=== PATIENT | male | born 1960 | race Caucasian/White ===

== ENCOUNTER 2020-07-31 09:32 | Emergency (ER) | payer BC, SELFPAY ==
--- NOTE | 2020-07-31 10:14 | ED.WOUNDLAC ---
HPI - Wound/Laceration General Chief Complaint: Wound/Laceration Stated Complaint: Wound check Time Seen by Provider: 07/31/20 10:14 Source: patient Mode of arrival: ambulatory Limitations: no limitations History of Present Illness HPI narrative: 60 y/o male with history of HLD presenting with bleeding left ring finger tip avulsion that occurrred 3 days ago. He was seen at an Urgent Care center where he had an X-ray done showing that the bone was not involved. A dressing was placed and he was instructed to return there today for a would check. On arrival there he states it started bleeding and was unable to stop. He states he has had some increased pain and throbbing. He is up to date on tetanus and was not prescribed antibiotics. He has full ROM and sensation of his finger. Denies purulent drainage or fevers. Onset (ago): day(s) (3) Location: other Extremity Location: left: hand (volar aspect of left ring finger ) Body four view annotation: 1. 2cm deep avulsion of tip without fingernail involvement Place: home Patient tetanus UTD: Yes Context: accidental Associated symptoms: pain Treatments prior to arrival: bandage Related Data Previous Rx's Medication Instructions Recorded cephalexin [Keflex] 500 mg PO QID 7 Days #28 cap 07/31/20 Allergies Allergy/AdvReac Type Severity Reaction Status Date / Time No Known Allergies Allergy Verified 07/31/20 10:18 Review of Systems Review of Systems: Constitutional: No Fever, No Chills Cardiovascular: No Chest Pain, No SOB Respiratory: No Cough, No Sputum Gastrointestinal: No Nausea, No Vomitin Musculoskeletal: + joint pain, No Myalgias Skin: No Skin Lesions, No rash Neuro: + Weakness, No Numbness, No Dizziness, No Headache Psych: No Anxiety/Panic, No Depression Heme/Lymph: No Bruising, No Lymphadenopathy Endocrine: No Polyuria, No Polydipsia PMFSH Past Medical History Attestation statement: The following information was validated with the patient. Medical History (Updated 07/31/20 @ 10:21 by Smitha Mark) Anxiety Panic disorder Surgical History (Updated 07/31/20 @ 10:21 by Smitha Mark) H/O hernia repair Social History Social History Advance Directives: No Advance Directives Information Provided: No Physical Exam Vital Signs: Vital Signs: Vital Signs Temp Pulse Resp BP Pulse Ox 07/31/20 10:18 98.1 F 58 16 123/80 99 Body Mass Index 27.6 Appearance: Alert. Oriented X3. No acute distress. HEENT: normal inspection CVS: Normal heart rate and rhythm. Pulses normal. Respiratory: No respiratory distress. Skin: Skin warm and dry. Normal skin color. Normal skin turgor. No rashes. Extremities: left ring finger with 2cm avulsion to volar aspect, does not involve nail. Small area of blackened tissue. Actively bleeding. Neuro: Oriented X 3. No motor deficit. No sensory deficit. Course Course Course Narrative: no bone or tendon involvement. NV intact. Dressing removed with saline and area cleansed with saline. new gauze and pressure has been applied. patient is not on aspirin or anticoaulgation. will reassess Reevaluation(s) Reevaluation #1: bleeidng stopped with 10 minutes of direct pressure. Xeroform and clean sterile dressing was applied. He was instructed to f/u with Wound Center in 3 days. patient agrees with plan. Critical Care Time Critical Care Time Critical Care Time: No Discharge Plan Discharge Clinical Impression: Avulsion of skin Patient Disposition: Home, Self-Care Instructions: Skin Avulsion (ED) Additional Instructions: Keep the yellow Xeroform dressing on for 3-5 days. Follow up with the [facility] in 3 days for re-assessment. Do not get wound wet. Keep hand elevated to help with pain and throbbing. If you develop numbness, tingling, loss of function of your finger or hand call 911 or come back to the ER for further evaluation. Prescriptions: New cephalexin [Keflex] 500 mg capsule 500 mg PO QID 7 Days Qty: 28 RF: 0 Referrals: Wound Care [facility] [Outside] - 2 days
[2020-07-31 10:18] VITALS: BP 123/80; PULSE 58; RESP 16; TEMP 36.7; O2SAT 99; BMI 27.6
== END 2020-07-31 11:04 | disposition home or self-care (01) ==
PROVIDERS: Emergency Provider Emergency Medicine; PCP Internal Medicine
DX: S66.395A Other injury of extensor muscle, fascia and tendon of left ring finger at wrist and hand level, initial encounter (principal); S61.305A Unspecified open wound of left ring finger with damage to nail, initial encounter; M79.645 Pain in left finger(s); Y28.9XXA Contact with unspecified sharp object, undetermined intent, initial encounter; Y93.9 Activity, unspecified; Y92.9 Unspecified place or not applicable; Y99.9 Unspecified external cause status
CPT/HCPCS: 99283

== ENCOUNTER 2020-08-02 10:18 | Outpatient (RCR) | payer BC, SELFPAY | END 2020-09-18 07:43 | disposition home or self-care (01) | LOC: HO.WCC 10:18 | PROVIDERS: PCP Internal Medicine; Visit Provider Surgery | DX: S61.215A Laceration without foreign body of left ring finger without damage to nail, initial encounter (principal) | CPT/HCPCS: 11042; 99203; 99212 ==

== ENCOUNTER 2022-11-01 12:51 | Emergency (ER) | payer BC, SELFPAY ==
--- NOTE | ~2022-11-01 | CT_ITS ---
EXAMINATION: CT ABDOMEN AND PELVIS WITH CONTRAST CLINICAL INFORMATION: Epigastric abdominal pain. COMPARISON: Abdominal ultrasound performed today. TECHNIQUE: Multidetector volumetric images were obtained from the superior aspect of the liver through the pubic symphysis following administration 85 mL of Omnipaque 350 intravenous contrast. Sagittal and coronal reformatted images were obtained on the technologist's workstation. Oral contrast: No This CT examination was performed using dose optimization techniques as appropriate, variously including the following: *Automated exposure control *Adjustment of mA and/or kV according to patient size (this includes techniques or standardized protocols for targeted exams where dose is matched to indication/reason for exam; i.e. extremities or head) *Use of iterative reconstruction technique DLP: 745 mGy-cm FINDINGS: LUNG BASES: The visualized lung bases are unremarkable. LIVER, GALLBLADDER, AND BILIARY TREE: Unremarkable. PANCREAS: Unremarkable. SPLEEN: Unremarkable. ADRENAL GLANDS: Unremarkable. KIDNEYS AND URETERS: The kidneys are normal in size, shape, and attenuation. No hydronephrosis, hydroureter, or calculi seen. No perinephric stranding. BLADDER: Unremarkable. GASTROINTESTINAL TRACT: The stomach is unremarkable. Mildly prominent fluid-filled jejunum is seen. A transition point is seen in the left midabdomen (image 32, series 7; image 52, series 3. Decompressed small bowel loops are seen distal to this in the mid ileum. The appendix is unremarkable. The colon shows a loop of the descending/sigmoid junction involved with a moderate left inguinal hernia. Small to moderate fat-containing right inguinal hernia. ABDOMINAL WALL: Small fat-containing umbilical hernia. LYMPH NODES: No lymphadenopathy. VASCULAR: Unremarkable. PELVIC VISCERA: Mild prostatomegaly. OSSEOUS STRUCTURES: L4-L5 and L5-S1 moderate degenerative disc disease and bilateral neural foraminal narrowing. CT/CT abdomen pelvis w IV con IMPRESSION: 1. Mildly prominent fluid-filled jejunum with transition point in the left midabdomen. Decompressed small bowel loops are seen distal to this in the mid ileum. This could be secondary to normal contraction however partial obstruction at this level cannot be excluded. Continued monitoring of the patient's symptoms is recommended. Short-term supine and upright radiographic follow-up is recommended as clinically indicated. 2. Moderate left inguinal hernia containing a loop of the descending/sigmoid junction without evidence for obstruction. Small to moderate fat-containing right inguinal hernia. 3. Small fat-containing umbilical hernia. 4. Mild prostatomegaly. 5. L4-L5 and L5-S1 moderate degenerative disc disease and bilateral neural foraminal narrowing.
--- NOTE | ~2022-11-01 | US_ITS ---
EXAMINATION: US ABDOMEN LIMITED CLINICAL INFORMATION: Epigastric abdominal pain. COMPARISON: CT scan of the abdomen and pelvis performed today. TECHNIQUE: Real-time imaging of the right upper quadrant abdominal viscera. FINDINGS: PANCREAS: Utilizing portions unremarkable. LIVER: Unremarkable. GALLBLADDER: Unremarkable. COMMON BILE DUCT: Normal in caliber measuring 0.4 cm in diameter. RIGHT KIDNEY: 9.5 cm. Unremarkable. FREE FLUID: None. US/US abdomen limited IMPRESSION: Unremarkable abdominal ultrasound.
[2022-11-01 12:58] VITALS: BP 141/72; BP 172/84; PULSE 51; PULSE 54; RESP 16; TEMP 36.7; O2SAT 97; O2SAT 98; BMI 28.8
--- NOTE | 2022-11-01 13:11 | ED_ITS ---
HPI - Abdominal Pain General Chief Complaint: Abdominal Pain Stated Complaint: Abd pain per EMS Time Seen by Provider: 11/01/22 13:01 Source: patient Mode of arrival: ambulatory Limitations: no limitations History of Present Illness HPI narrative: 62-year-old male presents to emergency room with 1 week of worsening midline abdominal pain. Patient states that he has never had any surgery had this pain in the past but has greater than worsening with the past week he denies nausea vomiting or diarrhea he states he has had an appetite he denies any associated of foods he denies is worse when lying down but states the pain is to his mid abdomen, radiates to his left shoulder patient denies fevers chills cough MD elicited complaint: abdominal pain Related Data Home Medications Medication Instructions Recorded Confirmed atenolol 25 mg tablet 1 tab PO DAILY 11/01/22 11/01/22 atorvastatin 40 mg tablet 1 tab PO DAILY 11/01/22 11/01/22 escitalopram oxalate 20 mg tablet 1 tab PO DAILY 11/01/22 11/01/22 famotidine 40 mg tablet 1 tab PO BID 11/01/22 11/01/22 Allergies Allergy/AdvReac Type Severity Reaction Status Date / Time No Known Allergies Allergy Verified 07/31/20 10:18 Review of Systems Review of Systems Review of systems: General: Patient denies any fever chills recent illness or falls Musculoskeletal: Denies back pain or body aches or other injuries HEENT: denies headache, runny nose, ear pain Respiratory: denies shortness of breath, cough Cardiovascular: no chest pain or palpitations : denies dysuria, frequency Abdomen: no nausea vomiting mid abdominal pain Extremities: no swelling, no pain Skin: no diaphoresis Yes all other systems are reviewed and are negative [facility] Past Medical History Medical History (Updated 11/01/22 @ 15:50 by Quinn Vera DO) Anxiety Panic disorder Surgical History (Updated 07/31/20 @ 10:21 by Smitha Mark) H/O hernia repair Social History Social History Smoked in Last 30 Days: No Use of substances other than those prescribed or required for medical reasons: No Advance Directives: No Advance Directives Information Provided: Yes Physical Exam ED Vital Signs: Vital Signs - 24 hr 11/01/22 12:58 11/01/22 13:56 11/01/22 14:37 Temperature 98.1 F 99.3 F Pulse Rate 51 56 Respiratory Rate 16 16 20 Blood Pressure 141/72 H 155/74 H Pulse Oximetry 97 97 Oxygen Delivery Method Room Air Room Air BMI result Body Mass Index 28.8 General: Well-appearing well-nourished in no signs of distress HEENT: Normocephalic atraumatic Neck: No signs of JVD, no masses no tenderness or lymphadenopathy Cardiovascular: Regular rate and rhythm Respiratory: Clear to auscultation bilaterally Abdomen: Soft negative Browning no pain at Macburney's point is tender to midline abdomen with guarding no masses Extremities: Normal pedal pulses no signs of edema Skin: Dry warm no rashes Back: No tenderness full ROM Medical Decision Making Medical Decision Making [facility] Narrative: 62-year-old male with epigastric pain that goes to his mid abdomen he has no history of any surgeries to his abdomen but is very tender on evaluation there is no real tenderness to the right upper quadrant but still concerned this could be his gallbladder also get a CT scan and ultrasound as well as check all labs. The patient morphine fluids and Pepcid. Concern for partial obsctuction and hernia has hernia surgery scheduled for December. He has had hernia repair x2 at [facility] in the past. I spoke with surgery Dr. Kent who reviewed the CT's and felt it was not a bowel obstuction. Patient is eating and drinking okay. I spoke with the patient about admission vs going home. He would rather go home. I will set up for discharge. Differential Diagnosis Differential Diagnoses: The differential diagnosis associated with the presentation includes Acute cholecystitis diverticulitis appendicitis gastric issue volvulus bowel obstruction or even perforation versus gastritis. Admission/Observation Consideration of admission/observation: Escalation of care including admission/observation considered Consult Healthcare Provider Management of the patient was discussed with: Internet Marketing Consultant I discussed the case with Dr. Kent about his CT read of acute partial obstruction. He felt if the patient is not acute he can follow up outpatient. Patinet tolerated clears belly pain has resolved. Lab Data [facility] Lab Attestation statement: I reviewed the patient's lab results. 11/01/22 13:26 11/01/22 13:26 Labs: Lab Results 11/01/22 11/01/22 11/01/22 Range/Units 13:23 13:26 13:26 WBC 10.0 (4.8-10.8) X10*3/uL RBC 5.07 (4.60-5.80) X10*6/uL Hgb 15.0 (14.0-18.0) g/dl Hct 44.3 (42.0-52.0) % MCV 87.4 (80.0-98.0) fL MCH 29.6 (27.0-33.0) pg MCHC 33.9 (31.0-36.0) g/dl RDW 12.5 (11.0-16.0) % Plt Count 347 (160-400) X10*3/uL MPV 8.9 L (9.4-12.4) fL Immature Gran % (Auto) 0.3 (0.0-0.4) % Neut % (Auto) 72.8 (45-73) % Lymph % (Auto) 18.0 L (20-40) % [place] % (Auto) 8.5 (2-11) % Eos % (Auto) 0.1 (0-4) % Baso % (Auto) 0.3 (0-2) % Lymph # (Auto) 1.8 (1.2-4.9) X10*3/uL [place] # (Auto) 0.9 (0.1-1.2) X10*3/uL Eos # (Auto) 0.0 (0.0-0.4) X10*3/uL Baso # (Auto) 0.0 (0.0-0.2) X10*3/uL Abs Immat Gran (auto) 0.03 (0.00-0.03) X10*3/uL Absolute Neuts (auto) 7.3 (2.0-8.3) x10*3/uL Absolute Nucleated RBC 0.000 (0.0-0.012) X10*3/uL Nucleated RBC % (auto) 0.0 (0.0-0.2) /100WBC Sodium 134 L (135-145) mmol/L Potassium 4.3 (3.3-5.1) mmol/L Chloride 99 (96-108) mmol/L Carbon Dioxide 25 (22-29) mmol/L Anion Gap 14 (12-20) BUN 14 (9-16) mg/dL Creatinine 0.94 (0.5-1.4) mg/dL Estim Creat Clear Calc 102.5 Estimated GFR > 60 Random Glucose 88 (60-115) mg/dL Calcium 9.5 (8.4-10.2) mg/dL Total Bilirubin 0.8 (0.0-1.0) mg/dL Direct Bilirubin 0.2 (0.0-0.5) mg/dL AST 26 (5-37) U/L ALT 25 (0-40) U/L Alkaline Phosphatase 63 (39-117) U/L Total Protein 7.3 (6.5-8.0) g/dL Albumin 4.2 (3.5-5.0) g/dL Lipase 37 (8-78) U/L Urine Color Urine Appearance Urine pH (5.0-9.0) Ur Specific [place] (1.005-1.025) Urine Protein (Neg-Trace) mg/dL Urine Glucose (UA) (Negative) mg/dL Urine Ketones (Negative) mg/dL Urine Blood (Negative) Urine Nitrite (Negative) Ur Leukocyte Esterase (Negative) Urine RBC (0-2) /HPF Urine WBC (0-5) /HPF Ur Squamous Epith Cells (0-2) /HPF Urine Bacteria (None Seen) Hyaline Casts (0-2) /LPF COVID-19 (KIMBERLY) Negative (Negative) COVID-19 Clin Com See Note 11/01/22 Range/Units 13:27 WBC (4.8-10.8) X10*3/uL RBC (4.60-5.80) X10*6/uL Hgb (14.0-18.0) g/dl Hct (42.0-52.0) % MCV (80.0-98.0) fL MCH (27.0-33.0) pg MCHC (31.0-36.0) g/dl RDW (11.0-16.0) % Plt Count (160-400) X10*3/uL MPV (9.4-12.4) fL Immature Gran % (Auto) (0.0-0.4) % Neut % (Auto) (45-73) % Lymph % (Auto) (20-40) % [place] % (Auto) (2-11) % Eos % (Auto) (0-4) % Baso % (Auto) (0-2) % Lymph # (Auto) (1.2-4.9) X10*3/uL [place] # (Auto) (0.1-1.2) X10*3/uL Eos # (Auto) (0.0-0.4) X10*3/uL Baso # (Auto) (0.0-0.2) X10*3/uL Abs Immat Gran (auto) (0.00-0.03) X10*3/uL Absolute Neuts (auto) (2.0-8.3) x10*3/uL Absolute Nucleated RBC (0.0-0.012) X10*3/uL Nucleated RBC % (auto) (0.0-0.2) /100WBC Sodium (135-145) mmol/L Potassium (3.3-5.1) mmol/L Chloride (96-108) mmol/L Carbon Dioxide (22-29) mmol/L Anion Gap (12-20) BUN (9-16) mg/dL Creatinine (0.5-1.4) mg/dL Estim Creat Clear Calc Estimated GFR Random Glucose (60-115) mg/dL Calcium (8.4-10.2) mg/dL Total Bilirubin (0.0-1.0) mg/dL Direct Bilirubin (0.0-0.5) mg/dL AST (5-37) U/L ALT (0-40) U/L Alkaline Phosphatase (39-117) U/L Total Protein (6.5-8.0) g/dL Albumin (3.5-5.0) g/dL Lipase (8-78) U/L Urine Color Yellow Urine Appearance Clear Urine pH 6.0 (5.0-9.0) Ur Specific [place] 1.020 (1.005-1.025) Urine Protein Negative (Neg-Trace) mg/dL Urine Glucose (UA) Negative (Negative) mg/dL Urine Ketones Negative (Negative) mg/dL Urine Blood Trace H (Negative) Urine Nitrite Negative (Negative) Ur Leukocyte Esterase Negative (Negative) Urine RBC 3-5 H (0-2) /HPF Urine WBC 0-5 (0-5) /HPF Ur Squamous Epith Cells 0-2 (0-2) /HPF Urine Bacteria None Seen (None Seen) Hyaline Casts 0-2 (0-2) /LPF COVID-19 (KIMBERLY) (Negative) COVID-19 Clin Com Medications Administered Discontinued Medications Generic Name Dose Route Start Last Admin Trade Name Ihsan PRN Reason Stop Dose Admin Famotidine 20 mg 11/01/22 13:08 11/01/22 13:56 Famotidine/Pf 20 Mg/2 Ml Vial IVPUSH 11/01/22 13:09 20 mg ONCE ONE Administration Sodium Chloride 1,000 mls @ 999 mls/hr 11/01/22 13:15 11/01/22 15:12 Ns IV 11/01/22 14:15 Infused .Q1H1M SANGEETA Infusion Iohexol 85 ml 11/01/22 14:16 11/01/22 14:16 Iohexol 350 Mg/Ml 100 Ml Infus..Btl IV 11/01/22 14:17 85 ml ONCE ONE Administration Morphine Sulfate 4 mg 11/01/22 13:08 11/01/22 13:56 Morphine Sulfate 4 Mg/Ml Cartridge IVPUSH 11/01/22 13:09 4 mg ONCE ONE Administration Protocol Ondansetron HCl 4 mg 11/01/22 13:08 11/01/22 13:56 Ondansetron Hcl 4 Mg/2 Ml Vial IVPUSH 11/01/22 13:09 4 mg ONCE ONE Administration Discharge Plan Discharge Clinical Impression: Abdominal pain Patient Disposition: Home, Self-Care Instructions: Abdominal Pain (ED) Additional Instructions: Please call to follow up with your doctor. Prescriptions: No Action atorvastatin 40 mg tablet 1 tab PO DAILY famotidine 40 mg tablet 1 tab PO BID atenolol 25 mg tablet 1 tab PO DAILY escitalopram oxalate 20 mg tablet 1 tab PO DAILY
[2022-11-01 13:32] LABS: MANUAL DIFF FLAG NO
[2022-11-01 13:36] LABS: Basophils Percent Auto 0.3 % (0-2); Eosinophils Percent Auto 0.1 % (0-4); Hematocrit 44.3 % (42.0-52.0); Imm Gran Abs Auto 0.03 X10*3/uL (0.00-0.03); Imm Gran Pct Auto 0.3 % (0.0-0.4); Lymphocytes Absolute Auto 1.8 X10*3/uL (1.2-4.9); Mean Corpuscular HGB Conc 33.9 g/dl (31.0-36.0); Mean Corpuscular Hemoglobin 29.6 pg (27.0-33.0); Mean Corpuscular Volume 87.4 fL (80.0-98.0); Mean Platelet Volume 8.9 fL (9.4-12.4); Monocytes Absolute Auto 0.9 X10*3/uL (0.1-1.2); Monocytes Percent Auto 8.5 % (2-11); Neutrophils Absolute Auto 7.3 x10*3/uL (2.0-8.3); Neutrophils Percent Auto 72.8 % (45-73); Platelet Count 347 X10*3/uL (160-400); Red Blood Count 5.07 X10*6/uL (4.60-5.80); Red Cell Distribution Width 12.5 % (11.0-16.0)
[2022-11-01 13:37] LABS: Appearance Urine Clear; Color Urine Yellow; Glucose Urine UA Negative (Negative); Leukocyte Esterase Urine Negative (Negative); Nitrite Urine Negative (Negative); UMIC TRIGGER UACC YES; Urine Blood Trace (Negative); Urine Ketones Negative (Negative); Urine Protein Negative (Neg-Trace)
[2022-11-01 13:42] LABS: Bacteria Urine None Seen (None Seen); Hyaline Casts Urine 0-2 /LPF (0-2); Squamous Epithelial Cell Urine 0-2 /HPF (0-2); WBC Urine 0-5 /HPF (0-5)
[2022-11-01 13:51] LABS: COVID-19 Test Negative (Negative); IDNOW Serial# 16C4AD1C
[2022-11-01 13:52] LABS: Alanine Aminotransferase 25 U/L (0-40); Albumin Level 4.2 g/dL (3.5-5.0); Alkaline Phosphatase 63 U/L (39-117); Anion Gap 14 (12-20); Aspartate Amino Transferase 26 U/L (5-37); Bilirubin Direct 0.2 mg/dL (0.0-0.5); Bilirubin Total 0.8 mg/dL (0.0-1.0); Blood Urea Nitrogen 14 mg/dL (9-16); Calcium 9.5 mg/dL (8.4-10.2); Carbon Dioxide 25 mmol/L (22-29); Chloride 99 mmol/L (96-108); Creatinine Clr Calc Pharmacy 102.5; Estimated Glomerular Filt Rate > 60; Glucose Random 88 mg/dL (60-115); Lipase 37 U/L (8-78); Potassium 4.3 mmol/L (3.3-5.1); Sodium 134 mmol/L (135-145); Total Protein 7.3 g/dL (6.5-8.0)
[2022-11-01 13:56] VITALS: RESP 16
[2022-11-01] MEDS: ondansetron HCL 4 MG/2 ML VIAL IVPUSH (13:56)
[2022-11-01] MEDS: Morphine Sulfate 4 MG/ML CARTRIDGE IVPUSH (13:56)
[2022-11-01] MEDS: Famotidine/PF 20 MG/2 ML VIAL IVPUSH (13:56)
[2022-11-01] MEDS: 0.9 % Sodium Chloride 1,000 ML 999 ML IV (14:00)
[2022-11-01] MEDS: iohexoL 350 MG/ML 100 ML INFUS..BTL 85 ML IV (14:16)
[2022-11-01 14:37] VITALS: BP 155/74; PULSE 56; RESP 20; TEMP 37.4; O2SAT 97
== END 2022-11-01 16:16 | disposition home or self-care (01) ==
PROVIDERS: Emergency Provider Student in an Organized Health Care Education/Training Program; PCP Internal Medicine
DX: R10.13 Epigastric pain (principal); Z20.822 Contact with and (suspected) exposure to COVID-19; Z20.828 Contact with and (suspected) exposure to other viral communicable diseases; Z79.899 Other long term (current) drug therapy
CPT/HCPCS: 74177; 76705; 80048; 80076; 81001; 83690; 85025; 87635; 99284; J2270; J2405; Q9967

== ENCOUNTER 2022-11-02 14:49 | Emergency (ER) | payer BC, SELFPAY ==
--- NOTE | ~2022-11-02 | CT_ITS ---
EXAMINATION: CT CHEST, ABDOMEN AND PELVIS WITHOUT CONTRAST CLINICAL INFORMATION: Upper abdominal pain. COMPARISON: None. TECHNIQUE: Multidetector volumetric CT imaging of the chest, abdomen and pelvis was obtained without oral or intravenous contrast. Coronal and sagittal reformatted images are performed at CT scanner [This CT examination was performed using dose optimization techniques as appropriate, variously including the following: *Automated exposure control *Adjustment of mA and/or kV according to patient size (this includes techniques or standardized protocols for targeted exams where dose is matched to indication/reason for exam; i.e. extremities or head) *Use of iterative reconstruction technique] DLP: 1257 mGy-cm. FINDINGS: CT CHEST: Lungs: The lungs are clear with no evidence of inflammation or nodules. Mediastinum: The mediastinum is normal. Pleura: There is no pleural effusion. No pleural mass or thickening. Axilla: No lymphadenopathy. CT ABDOMEN AND PELVIS: Liver, Gallbladder and Biliary Tree: The liver is normal in size, shape, and attenuation. No focal hepatic lesion or biliary ductal dilatation is present. The gallbladder is unremarkable with no evidence of radiopaque gallstones, gallbladder wall thickening, or obvious pericholecystic inflammatory changes. Pancreas: No acute change of the pancreas. No mass. No pancreatic duct dilatation. Spleen: Spleen normal in size and contour. No focal lesion. Adrenal Glands: Adrenal glands are normal in size. No focal mass. Kidneys and Ureters: The kidneys are normal in size, shape, and attenuation. No hydronephrosis, hydroureter, or calculi seen. No perinephric stranding. Bladder: Unremarkable. ABDOMINAL WALL/GASTROINTESTINAL Tract: Left inguinal hernia containing nonobstructive loop of the sigmoid colon. The herniated fat pocket measures 7 cm transverse at about 11 cm of length. Small fat-containing umbilical hernia. No acute change of the bowel. No bowel obstruction. No bowel thickening or edema. Moderate volume of stool in the colon. The appendix is not visualized. No inflammation the mesentery. Small bowel loops are unremarkable. Stomach is normal. Mesentery: No focal inflammation. No free fluid. No free air. Lymph Nodes: Normal. Vascular: Small volume of scattered vascular wall calcifications of aorta and iliac arteries. Pelvic Viscera: Unremarkable. Osseous Structures: Multilevel degenerative spondylosis spine. CT/CT abdomen pelvis wo IV con IMPRESSION: CT CHEST: No acute abnormality. CT ABDOMEN PELVIS: Left inguinal hernia containing nonobstructive loop of sigmoid colon.
--- NOTE | 2022-11-02 16:19 | ECG_ITS ---
Test Reason : ABD PAIN Blood Pressure : / mmHG Vent. Rate : 047 BPM Atrial Rate : 047 BPM P-R Int : 172 ms QRS Dur : 092 ms QT Int : 440 ms P-R-T Axes : 032 014 006 degrees QTc Int : 389 ms Sinus bradycardia Otherwise normal ECG No previous ECGs available Referred By: Benji Rodriguez Electronically Signed By:ALYSE LUCERO MD
[2022-11-02 16:20] VITALS: BP 144/80; PULSE 56; RESP 18; TEMP 37.1; O2SAT 97; BMI 28.8
--- NOTE | 2022-11-02 16:22 | ED_ITS ---
HPI - General Adult General Chief complaint: Abdominal Pain <AYAKA Johnson - Last Filed: 11/02/22 20:13> Stated complaint: Abd pain- seen yesterday <AYAKA Johnson - Last Filed: 11/02/22 20:13> Time Seen by Provider: 11/02/22 19:25 <AYAKA Johnson - Last Filed: 11/02/22 20:13> Source: patient and family <Chad Johnson MD - Last Filed: 11/02/22 19:53> Mode of arrival: ambulatory <Chad Johnson MD - Last Filed: 11/02/22 19:53> Limitations: no limitations <Chad Johnson MD - Last Filed: 11/02/22 19:53> History of Present Illness HPI narrative: 62-year-old male with history of anxiety depression and hypertension presents to the emergency department with feelings of anxiety, chest tightness abdominal tightness. Patient has been on Xanax for approximately 4 years. Recently, patient has been taking extra doses of his medication condition P. He ran out of his medications approximately last Wednesday. Since then he has had intermittent chest tightness abdominal tightness, back pain. Appears to be exacerbated when his anxiety and stress levels are elevated. He denies any significant shortness of breath. Denies chest pain with exertion. Denies any focal neurologic deficit she has numbness, tingling or focal weakness. He has also noted that his blood pressures been elevated during the same period of time and he has been compliant with his blood pressure medications. Additionally, he denies any orthopnea, PND, RAMON. Patient denies suicidal or homicidal ideation. He does note that his was unaware of how he is taking his medications was low bit frustrated earlier. Patient denies any seizure activity. <Chad Johnson MD - Last Filed: 11/02/22 19:53> Related Data Home medications: Home Medications Medication Instructions Recorded Confirmed atenolol 25 mg tablet 1 tab PO DAILY 11/01/22 11/01/22 atorvastatin 40 mg tablet 1 tab PO DAILY 11/01/22 11/01/22 escitalopram oxalate 20 mg tablet 1 tab PO DAILY 11/01/22 11/01/22 famotidine 40 mg tablet 1 tab PO BID 11/01/22 11/01/22 Previous Rx's Medication Instructions Recorded clonazepam 1 mg tablet 1 mg PO BID anxiety #6 tabs 11/02/22 <AYAKA Johnson - Last Filed: 11/02/22 20:13> Allergies/adverse reactions: Allergies Allergy/AdvReac Type Severity Reaction Status Date / Time No Known Allergies Allergy Verified 07/31/20 10:18 <AYAKA Johnson - Last Filed: 11/02/22 20:13> Review of Systems Review of Systems: CONSTITUTIONAL: Denies weight loss, fever and chills. HEENT: Denies changes in vision and hearing. RESPIRATORY: Denies SOB and cough. CV: Denies palpitations + CP. GI: + abdominal pain, No nausea, vomiting and diarrhea. : Denies dysuria and urinary frequency. MSK: Denies myalgia and joint pain. SKIN: Denies rash and pruritus. NEUROLOGICAL: Denies headache and syncope.tremulousness PSYCHIATRIC: Denies recent changes in mood. + anxiety and depression. <Chad Johnson MD - Last Filed: 11/02/22 19:53> Yes all other systems are reviewed and are negative <Chad Johnson MD - Last Filed: 11/02/22 19:53> PMFSH Past Medical History Medical History: Medical History Anxiety Panic disorder <AYAKA Johnson - Last Filed: 11/02/22 20:13> Surgical History: Surgical History H/O hernia repair <AYAKA Johnson - Last Filed: 11/02/22 20:13> Social History Social History: Social History Advance Directives: No Advance Directives Information Provided: No <AYAKA Johnson - Last Filed: 11/02/22 20:13> Physical Exam ED Vital Signs: Vital Signs - 24 hr 11/02/22 16:20 Temperature 98.8 F Pulse Rate 56 Respiratory Rate 18 Blood Pressure 144/80 H Pulse Oximetry 97 Oxygen Delivery Method Room Air BMI result Body Mass Index 28.8 <AYAKA Johnson - Last Filed: 11/02/22 20:13> Vital Signs - 24 hr 11/02/22 16:20 Temperature 98.8 F Pulse Rate 56 Respiratory Rate 18 Blood Pressure 144/80 H Pulse Oximetry 97 Oxygen Delivery Method Room Air BMI result Body Mass Index 28.8 GEN: Well developed, no acute distress, alert, oriented HEENT: Normocephalic, atraumatic, normal external ears, nose appears normal, no oropharyngeal edema or exudates Eyes: Normal to appearance Neck: Supple, no lymphadenopathy Respiratory: Talks in complete sentences, no respiratory distress, clear to auscultation bilaterally Cardiovascular: Regular rate and rhythm, no murmurs rubs or gallops Abdomen: Soft, nontender, nondistended, no guarding, no rebound Back: No CVA tenderness Extremities: No clubbing cyanosis or edema Neurologic: No focal neurologic deficits, cranial nerves 2-12 intact, strength is 5/5 bilaterally, gait normal Skin: No rash <Chad Johnson MD - Last Filed: 11/02/22 19:53> Course Course Course Narrative: RME: 62 yold male returns to the ED for abdominal pain. patient states abd ominal pain with constipation, nauseaa, and no appettite for a couple of days. patient seen yesterday with diagnosis of partial bowel obstruction, but surgeon did not not think it was bowel obstruction so patient was discharged. Repeat imaging and labs ordered. EKG ordered <AYAKA Johnson - Last Filed: 11/02/22 20:13> Reevaluation(s) Reevaluation #1: It is 745. The workup is complete. Patient had a CT scan of the abdomen and chest. Did not demonstrate any acute abnormalities. His lab work did not reveal any acute abnormalities as well to describe symptoms. More likely than not he is going through withdrawal from benzodiazepines. We had extensive conversation regarding the use of alprazolam. At this point I am recommending him switch to clonazepam for a longer acting FX and reduce risk for withdrawal. I am also recommending close follow-up with his primary care provider to work on his medical management. Patient will return for any worsening or concerning sy mptoms. There is no indication for patient to be evaluated by our crisis team esters no suicidal or homicidal ideation. is present during these conversations and she agrees with this plan as well. <Chad Johnson MD - Last Filed: 11/02/22 19:53> Time: 19:47 <Chad Johnson MD - Last Filed: 11/02/22 19:53> Medical Decision Making Medical Decision Making MDM Narrative: 62-year-old male with history of anxiety, depression, hypertension presents with chest tightness, abdominal tightness, back discomfort associated with withdrawal from alprazolam which he last took last Wednesday. He has had no seizure activity. Patient is somewhat tremulous on examination but otherwise his exam is benign including no abdominal tenderness, rebound or guarding. Lungs were clear to auscultation bilaterally and heart was regular. Patient will have workup including imaging studies, laboratory analysis, EKG. <Chad Johnson MD - Last Filed: 11/02/22 19:53> Differential Diagnosis Differential Diagnoses: The differential diagnosis associated with the presentation includes (Anxiety, depression, medication withdrawal, atypical chest pain, cardiac chest pain, pneumothorax, pericarditis, aortic dysfunction.) <Chad Johnson MD - Last Filed: 11/02/22 19:53> Medication withdrawal, anxiety, atypical chest pain, abdominal pain <Chad Johnson MD - Last Filed: 11/02/22 19:53> Admission/Observation Consideration of admission/observation: Escalation of care including admission/observation considered <Chad Johnson MD - Last Filed: 11/02/22 19:53> Lab Data MDM Lab Attestation statement: I reviewed the patient's lab results. <Cahd Johnson MD - Last Filed: 11/02/22 19:53> Result Diagrams: 11/02/22 17:21 11/02/22 17:21 <AYAKA Johnson - Last Filed: 11/02/22 20:13> Labs: Lab Results 11/02/22 11/02/22 11/02/22 Range/Units 17:21 17:21 17:21 WBC 11.1 H (4.8-10.8) X10*3/uL RBC 5.15 (4.60-5.80) X10*6/uL Hgb 15.3 (14.0-18.0) g/dl Hct 45.0 (42.0-52.0) % MCV 87.4 (80.0-98.0) fL MCH 29.7 (27.0-33.0) pg MCHC 34.0 (31.0-36.0) g/dl RDW 12.3 (11.0-16.0) % Plt Count 349 (160-400) X10*3/uL MPV 9.0 L (9.4-12.4) fL Immature Gran % (Auto) 0.3 (0.0-0.4) % Neut % (Auto) 68.3 (45-73) % Lymph % (Auto) 21.3 (20-40) % [place] % (Auto) 9.4 (2-11) % Eos % (Auto) 0.3 (0-4) % Baso % (Auto) 0.4 (0-2) % Lymph # (Auto) 2.4 (1.2-4.9) X10*3/uL [place] # (Auto) 1.0 (0.1-1.2) X10*3/uL Eos # (Auto) 0.0 (0.0-0.4) X10*3/uL Baso # (Auto) 0.0 (0.0-0.2) X10*3/uL Abs Immat Gran (auto) 0.03 (0.00-0.03) X10*3/uL Absolute Neuts (auto) 7.6 (2.0-8.3) x10*3/uL Absolute Nucleated RBC 0.000 (0.0-0.012) X10*3/uL Nucleated RBC % (auto) 0.0 (0.0-0.2) /100WBC PT 11.6 (10.0-13.1) SEC INR 1.0 (0.9-1.1) APTT 29.2 (26.0-36.4) SEC Sodium 134 L (135-145) mmol/L Potassium 4.6 (3.3-5.1) mmol/L Chloride 98 (96-108) mmol/L Carbon Dioxide 29 (22-29) mmol/L Anion Gap 12 (12-20) BUN 14 (9-16) mg/dL Creatinine 1.01 (0.5-1.4) mg/dL Estim Creat Clear Calc 95.4 Estimated GFR > 60 Random Glucose 99 (60-115) mg/dL Calcium 9.4 (8.4-10.2) mg/dL Total Bilirubin 0.8 (0.0-1.0) mg/dL AST 23 (5-37) U/L ALT 24 (0-40) U/L Alkaline Phosphatase 67 (39-117) U/L Troponin I High Sens (<3.5-35.0) ng/L B-Natriuretic Peptide (<100) pg/mL Total Protein 7.4 (6.5-8.0) g/dL Albumin 4.3 (3.5-5.0) g/dL Lipase 46 (8-78) U/L Influenza Type A (PCR) (Negative) Influenza Type B (PCR) (Negative) RSV RNA Qual (PCR) (Negative) SARS-CoV-2 RNA (RT-PCR) (Negative) 11/02/22 11/02/22 11/02/22 Range/Units 17:21 17:21 17:21 WBC (4.8-10.8) X10*3/uL RBC (4.60-5.80) X10*6/uL Hgb (14.0-18.0) g/dl Hct (42.0-52.0) % MCV (80.0-98.0) fL MCH (27.0-33.0) pg MCHC (31.0-36.0) g/dl RDW (11.0-16.0) % Plt Count (160-400) X10*3/uL MPV (9.4-12.4) fL Immature Gran % (Auto) (0.0-0.4) % Neut % (Auto) (45-73) % Lymph % (Auto) (20-40) % [place] % (Auto) (2-11) % Eos % (Auto) (0-4) % Baso % (Auto) (0-2) % Lymph # (Auto) (1.2-4.9) X10*3/uL [place] # (Auto) (0.1-1.2) X10*3/uL Eos # (Auto) (0.0-0.4) X10*3/uL Baso # (Auto) (0.0-0.2) X10*3/uL Abs Immat Gran (auto) (0.00-0.03) X10*3/uL Absolute Neuts (auto) (2.0-8.3) x10*3/uL Absolute Nucleated RBC (0.0-0.012) X10*3/uL Nucleated RBC % (auto) (0.0-0.2) /100WBC PT (10.0-13.1) SEC INR (0.9-1.1) APTT (26.0-36.4) SEC Sodium (135-145) mmol/L Potassium (3.3-5.1) mmol/L Chloride (96-108) mmol/L Carbon Dioxide (22-29) mmol/L Anion Gap (12-20) BUN (9-16) mg/dL Creatinine (0.5-1.4) mg/dL Estim Creat Clear Calc Estimated GFR Random Glucose (60-115) mg/dL Calcium (8.4-10.2) mg/dL Total Bilirubin (0.0-1.0) mg/dL AST (5-37) U/L ALT (0-40) U/L Alkaline Phosphatase (39-117) U/L Troponin I High Sens < 3.5 (<3.5-35.0) ng/L B-Natriuretic Peptide 37 (<100) pg/mL Total Protein (6.5-8.0) g/dL Albumin (3.5-5.0) g/dL Lipase (8-78) U/L Influenza Type A (PCR) NEGATIVE (Negative) Influenza Type B (PCR) NEGATIVE (Negative) RSV RNA Qual (PCR) NEGATIVE (Negative) SARS-CoV-2 RNA (RT-PCR) NEGATIVE (Negative) <AYAKA Johnson - Last Filed: 11/02/22 20:13> Lab Results 11/02/22 11/02/22 11/02/22 Range/Units 17:21 17:21 17:21 WBC 11.1 H (4.8-10.8) X10*3/uL RBC 5.15 (4.60-5.80) X10*6/uL Hgb 15.3 (14.0-18.0) g/dl Hct 45.0 (42.0-52.0) % MCV 87.4 (80.0-98.0) fL MCH 29.7 (27.0-33.0) pg MCHC 34.0 (31.0-36.0) g/dl RDW 12.3 (11.0-16.0) % Plt Count 349 (160-400) X10*3/uL MPV 9.0 L (9.4-12.4) fL Immature Gran % (Auto) 0.3 (0.0-0.4) % Neut % (Auto) 68.3 (45-73) % Lymph % (Auto) 21.3 (20-40) % [place] % (Auto) 9.4 (2-11) % Eos % (Auto) 0.3 (0-4) % Baso % (Auto) 0.4 (0-2) % Lymph # (Auto) 2.4 (1.2-4.9) X10*3/uL [place] # (Auto) 1.0 (0.1-1.2) X10*3/uL Eos # (Auto) 0.0 (0.0-0.4) X10*3/uL Baso # (Auto) 0.0 (0.0-0.2) X10*3/uL Abs Immat Gran (auto) 0.03 (0.00-0.03) X10*3/uL Absolute Neuts (auto) 7.6 (2.0-8.3) x10*3/uL Absolute Nucleated RBC 0.000 (0.0-0.012) X10*3/uL Nucleated RBC % (auto) 0.0 (0.0-0.2) /100WBC PT 11.6 (10.0-13.1) SEC INR 1.0 (0.9-1.1) APTT 29.2 (26.0-36.4) SEC Sodium 134 L (135-145) mmol/L Potassium 4.6 (3.3-5.1) mmol/L Chloride 98 (96-108) mmol/L Carbon Dioxide 29 (22-29) mmol/L Anion Gap 12 (12-20) BUN 14 (9-16) mg/dL Creatinine 1.01 (0.5-1.4) mg/dL Estim Creat Clear Calc 95.4 Estimated GFR > 60 Random Glucose 99 (60-115) mg/dL Calcium 9.4 (8.4-10.2) mg/dL Total Bilirubin 0.8 (0.0-1.0) mg/dL AST 23 (5-37) U/L ALT 24 (0-40) U/L Alkaline Phosphatase 67 (39-117) U/L Troponin I High Sens (<3.5-35.0) ng/L B-Natriuretic Peptide (<100) pg/mL Total Protein 7.4 (6.5-8.0) g/dL Albumin 4.3 (3.5-5.0) g/dL Lipase 46 (8-78) U/L Influenza Type A (PCR) (Negative) Influenza Type B (PCR) (Negative) RSV RNA Qual (PCR) (Negative) SARS-CoV-2 RNA (RT-PCR) (Negative) 11/02/22 11/02/22 11/02/22 Range/Units 17:21 17:21 17:21 WBC (4.8-10.8) X10*3/uL RBC (4.60-5.80) X10*6/uL Hgb (14.0-18.0) g/dl Hct (42.0-52.0) % MCV (80.0-98.0) fL MCH (27.0-33.0) pg MCHC (31.0-36.0) g/dl RDW (11.0-16.0) % Plt Count (160-400) X10*3/uL MPV (9.4-12.4) fL Immature Gran % (Auto) (0.0-0.4) % Neut % (Auto) (45-73) % Lymph % (Auto) (20-40) % [place] % (Auto) (2-11) % Eos % (Auto) (0-4) % Baso % (Auto) (0-2) % Lymph # (Auto) (1.2-4.9) X10*3/uL [place] # (Auto) (0.1-1.2) X10*3/uL Eos # (Auto) (0.0-0.4) X10*3/uL Baso # (Auto) (0.0-0.2) X10*3/uL Abs Immat Gran (auto) (0.00-0.03) X10*3/uL Absolute Neuts (auto) (2.0-8.3) x10*3/uL Absolute Nucleated RBC (0.0-0.012) X10*3/uL Nucleated RBC % (auto) (0.0-0.2) /100WBC PT (10.0-13.1) SEC INR (0.9-1.1) APTT (26.0-36.4) SEC Sodium (135-145) mmol/L Potassium (3.3-5.1) mmol/L Chloride (96-108) mmol/L Carbon Dioxide (22-29) mmol/L Anion Gap (12-20) BUN (9-16) mg/dL Creatinine (0.5-1.4) mg/dL Estim Creat Clear Calc Estimated GFR Random Glucose (60-115) mg/dL Calcium (8.4-10.2) mg/dL Total Bilirubin (0.0-1.0) mg/dL AST (5-37) U/L ALT (0-40) U/L Alkaline Phosphatase (39-117) U/L Troponin I High Sens < 3.5 (<3.5-35.0) ng/L B-Natriuretic Peptide 37 (<100) pg/mL Total Protein (6.5-8.0) g/dL Albumin (3.5-5.0) g/dL Lipase (8-78) U/L Influenza Type A (PCR) NEGATIVE (Negative) Influenza Type B (PCR) NEGATIVE (Negative) RSV RNA Qual (PCR) NEGATIVE (Negative) SARS-CoV-2 RNA (RT-PCR) NEGATIVE (Negative) <Chad Johnson MD - Last Filed: 11/02/22 19:53> Independent Interpretation I performed an independent interpretation of an: EKG (Sinus bradycardia heart rate 47, normal intervals, no acute ST elevations or depressions, early repolarization, no comparison available) and CT Scan (Reviewed imaging studies with chest abdomen pelvis, reviewed radiology interpretation agree with findings) <Chad Johnson MD - Last Filed: 11/02/22 19:53> Radiology Impression Discussion of test interpretation with radiology: I have reviewed the radiologist's reading. ( CT/CT a bdomen pelvis wo IV con IMPRESSION: CT CHEST: No acute abnormality. CT ABDOMEN PELVIS: Left inguinal hernia containing nonobstructive loop of sigmoid colon. Dictated By:Tahir Feliciano MDSigned By:<Electronically signed by Tahir Feliciano MD in [place]>11/02/22 [id number]) <Chad Johnson MD - Last Filed: 11/02/22 19:53> External Record Review External record reviewed: Office record (none available) <Chad Johnson MD - Last Filed: 11/02/22 19:53> Prescription Management I considered prescription management with: Other (anxiolytics) <Chad Johnson MD - Last Filed: 11/02/22 19:53> Chronic Conditions Patient?s care impacted by: Hypertension <Chad Johnson MD - Last Filed: 11/02/22 19:53> Discharge Plan Discharge Clinical Impression: Anxiety, Drug withdrawal, Atypical chest pain <AYAKA Johnson - Last Filed: 11/02/22 20:13> Patient Disposition: Home, Self-Care <AYAKA Johnson - Last Filed: 11/02/22 20:13> Instructions: Chest Pain (ED), Anxiety (ED) <AYAKA Johnson - Last Filed: 11/02/22 20:13> Additional Instructions: You were evaluated today for constellation of symptoms including anxiety, chest pain, abdominal pain, back pain. More likely than not you were having some withdrawal symptoms from alprazolam. Recommending to transition from alprazolam to clonazepam which has a longer half-life to reduce her risk of withdrawal. I can provide you with a 3 day supply until you are able to follow- up with her primary care provider where their office. Should your symptoms worsen or become concerning in any other way, please return to the emergency department for immediate evaluation. <AYAKA Johnson - Last Filed: 11/02/22 20:13> Prescriptions: New clonazepam 1 mg tablet 1 mg PO BID Qty: 6 0RF No Action atorvastatin 40 mg tablet 1 tab PO DAILY famotidine 40 mg tablet 1 tab PO BID atenolol 25 mg tablet 1 tab PO DAILY escitalopram oxalate 20 mg tablet 1 tab PO DAILY <AYAKA Johnson - Last Filed: 11/02/22 20:13> Referrals: Brijesh Genao MD [Primary Care Provider] - 3 days <AYAKA Johnson - Last Filed: 11/02/22 20:13> Interventions: ED Discharge Assessment Last Done: 11/02/22 20:01 <AYAKA Johnson - Last Filed: 11/02/22 20:13> Discharge Date/Time: 11/02/22 20:02 <AYAKA Johnson - Last Filed: 11/02/22 20:13>
[2022-11-02 17:28] LABS: MANUAL DIFF FLAG NO
[2022-11-02 17:29] LABS: Basophils Percent Auto 0.4 % (0-2); Eosinophils Percent Auto 0.3 % (0-4); Hemoglobin 15.3 g/dl (14.0-18.0); Imm Gran Abs Auto 0.03 X10*3/uL (0.00-0.03); Imm Gran Pct Auto 0.3 % (0.0-0.4); Lymphocytes Absolute Auto 2.4 X10*3/uL (1.2-4.9); Lymphocytes Percent Auto 21.3 % (20-40); Mean Corpuscular Hemoglobin 29.7 pg (27.0-33.0); Mean Corpuscular Volume 87.4 fL (80.0-98.0); Monocytes Percent Auto 9.4 % (2-11); Neutrophils Absolute Auto 7.6 x10*3/uL (2.0-8.3); Neutrophils Percent Auto 68.3 % (45-73); Platelet Count 349 X10*3/uL (160-400); Red Blood Count 5.15 X10*6/uL (4.60-5.80); Red Cell Distribution Width 12.3 % (11.0-16.0); White Blood Count 11.1 X10*3/uL (4.8-10.8)
[2022-11-02 17:36] LABS: Prothrombin Time 11.6 SEC (10.0-13.1)
[2022-11-02 17:39] LABS: Partial Thromboplastin Time 29.2 SEC (26.0-36.4)
[2022-11-02 17:43] LABS: Alanine Aminotransferase 24 U/L (0-40); Albumin Level 4.3 g/dL (3.5-5.0); Alkaline Phosphatase 67 U/L (39-117); Anion Gap 12 (12-20); Aspartate Amino Transferase 23 U/L (5-37); Bilirubin Total 0.8 mg/dL (0.0-1.0); Blood Urea Nitrogen 14 mg/dL (9-16); Calcium 9.4 mg/dL (8.4-10.2); Carbon Dioxide 29 mmol/L (22-29); Chloride 98 mmol/L (96-108); Creatinine Clr Calc Pharmacy 95.4; Estimated Glomerular Filt Rate > 60; Glucose Random 99 mg/dL (60-115); Lipase 46 U/L (8-78); Potassium 4.6 mmol/L (3.3-5.1); Sodium 134 mmol/L (135-145); Total Protein 7.4 g/dL (6.5-8.0)
[2022-11-02 17:49] LABS: B Type Natriuretic Peptide 37 pg/mL (<100)
[2022-11-02 17:51] LABS: Troponin-I High Sensitivity < 3.5 ng/L (<3.5-35.0)
[2022-11-02 18:11] LABS: Influenza A PCR NEGATIVE (Negative); Influenza B PCR NEGATIVE (Negative); Resp Syncy Virus RNA Qual PCR NEGATIVE (Negative); SARS COV2 PCR INHOUSE NEGATIVE (Negative)
== END 2022-11-02 20:02 | disposition home or self-care (01) ==
PROVIDERS: Physician Assistant; Emergency Provider Emergency Medicine; PCP Internal Medicine
DX: F41.9 Anxiety disorder, unspecified (principal); F13.930 Sedative, hypnotic or anxiolytic use, unspecified with withdrawal, uncomplicated; R07.89 Other chest pain; R10.9 Unspecified abdominal pain; Z20.822 Contact with and (suspected) exposure to COVID-19; Z20.828 Contact with and (suspected) exposure to other viral communicable diseases; I10 Essential (primary) hypertension; Z79.899 Other long term (current) drug therapy; Z79.02 Long term (current) use of antithrombotics/antiplatelets
CPT/HCPCS: 0241U; 36415; 71250; 74176; 80053; 83690; 83880; 84484; 85025; 85610; 85730; 93005; 99283; 99284